=== PATIENT | male | born 1965 | race Caucasian/White ===

== ENCOUNTER 2020-06-25 08:57 | Day surgery (SDC) | payer OTHER, SELFPAY ==
[~2020-06-25] VITALS: Ht 177.8 cm; Wt 84.4 kg
[~2020-06-25 08:57] MED LIST: [UNRECOGNIZED DRUG - REMARK]
[2020-06-25] MEDS ORDERED: MIDAZOLAM 2 MG/2 ML VIAL ONE (10:54)
[2020-06-25] MEDS ORDERED: fentaNYL citrate 0.05 MG/ML VIAL ONE (10:54)
[2020-06-25] MEDS ORDERED: LIDOCAINE 2% 100 MG/5 ML UJET TP ONE (10:54)
[2020-06-25] MEDS ORDERED: MIDAZOLAM 2 MG/2 ML VIAL IVP ONE (12:50)
[2020-06-25] MEDS ORDERED: fentaNYL citrate 0.05 MG/ML VIAL IVP ONE (12:50)
== END 2020-06-25 12:10 | disposition home or self-care (01) ==
LOC: MDS 08:57 → MFCC 08:58 → MDS 12:10
PROVIDERS: ATTEND Internal Medicine Gastroenterology
DX: Z12.11 Encounter for screening for malignant neoplasm of colon (principal); R13.10 Dysphagia, unspecified; F17.200 Nicotine dependence, unspecified, uncomplicated; E66.3 Overweight; Z11.59 Encounter for screening for other viral diseases
CPT/HCPCS: 43235; 45378; J2250; J3010; U0003